=== PATIENT | male | born 1975 | race Caucasian/White ===

== ENCOUNTER 2021-07-26 03:27 | Outpatient (CLI) | payer OTHER, SELFPAY ==
[2021-07-26 10:34] LABS: HCT 45.8 % (40.0-50.0); HGB 15.4 g/dL (13.5-17.5); MCH 31.4 pg (27.0-33.0); MCHC 33.6 % (32.0-36.0); MCV 93.5 fL (80-95); MPV 10.5 fL (8.0-11.0); Platelet Count 220 10^3/uL (130-400); RDW 11.9 % (11.8-14.1)
[2021-07-26 11:42] LABS: ALT 44 U/L (16-63); AST 20 U/L (15-37); Albumin 4.5 g/dL (3.4-5.0); Alkaline Phosphatase 111 U/L (46-116); Anion Gap 7.8 mmol/L (3-11); BUN 8 mg/dL (7-18); Bilirubin, Total 0.6 mg/dL (0.2-1.0); CO2 29.2 mmol/L (21.0-32.0); CREATININE 1.1 mg/dL (0.70-1.30); Calcium 9.7 mg/dL (8.5-10.1); Calculated LDL 108 mg/dL (<100); Chloride 102 mmol/L (98-107); Cholesterol 191 mg/dL (<200); Glucose 100 mg/dL (74-106); HDL Cholesterol 66 mg/dL (40-60); Potassium 4.5 mmol/L (3.5-5.1); Sodium 139 mmol/L (136-145); Total Protein 7.9 g/dL (6.4-8.2); Triglyceride 87 mg/dL (<150)
== END 2021-07-26 03:28 | disposition home or self-care (01) ==
LOC: LBO 03:27
PROVIDERS: PCP Nurse Practitioner; Visit Provider Nurse Practitioner
DX: Z00.00 Encounter for general adult medical examination without abnormal findings (principal); Z13.220 Encounter for screening for lipoid disorders
CPT/HCPCS: 36415; 80053; 80061; 85027

== ENCOUNTER 2024-01-29 09:13 | Day surgery (SDC) | payer OTHER, SELFPAY ==
--- NOTE | 2024-01-28 11:38 | COLE_ITS ---
Date of service: 01/29/24 Time of Service: 10:39 Colonoscopy Report Date of procedure: 01/29/24 Pre-op diagnosis general: crc screening Post-op diagnosis procedure note: other (Diverticula and colon polyps) Surgeon: Desirae Napoles Anesthesia Type: General:No Airway Estimated blood loss (mL): 2 Pathology: other Complications: None Disposition: same day Prep: Miralax/Dulcolax Retraction Time: 14 Procedure Description: After informed consent was obtained the patient was taken to the procedure room and placed in a left decubitous position. Monitors were applied and a time out was done. The patients name, date of , procedure, allergies to medications and metal in their body was reviewed. The patient was then sedated. Once sedated and comfortable a rectal exam was done. External exam was normal. Internal exam revealed a normal sphincter tone and no palpable masses. The prostate without masses. The scope was then introduced and retrofelexed. No internal hemorrhoids were identified. The scope was then advanced to the cecum without difficulty. The TI and appendiceal orifice were identified. The scope was then slowly retracted over 14 minutes back into the rectum. He has few, small diverticula confined to the sigmoid colon. There is no signs of active bleeding or infection. He has a flat 0.5 cm polyp at 20 cm that is removed with a cold biopsy forceps. He has a 0.75 cm pedunculated polyp in the rectum. This is removed with a cold snare. All specimens are retrieved and no bleeding is noted the scope was removed and the patient was woken up and taken back to Same day surgery in stable condition. The patient tolerated the procedure well and there were no immediate complications. Follow up: The patient should follow up in 5-7years, path pending, unless they develop changes in bowel habits or other new gastrointestinal complaints. [place] Bowel Prep [place] Bowel Prep Right Colon: 3 Left Colon: 3 Transverse Colon: 3 Total Score: 9
--- NOTE | 2024-01-28 11:39 | PDOC.DSDIS_ITS ---
Date of service: 01/29/24 Time of Service: 10:48 Discharge Plan Disposition Patient Disposition: Home Condition: Good Discharge Details Reason For Visit: colon cancer screening Attending Provider: Desirae Napoles Primary Care Provider: Cristela Plascencia Home Meds and New Rx's Prescriptions: Continued albuterol sulfate [ProAir HFA] 90 mcg/actuation HFA aerosol inhaler 2 puff Inhalation QID PRN (Reason: bronchospasm) Qty: 8.5 12RF Rx Instructions: 2 puffs QID PRN. valacyclovir [Valtrex] 1 gram tablet 2,000 mg PO BID PRN (Reason: herpes) Qty: 32 12RF Rx Instructions: 2 tabs BID for one day, PRN genital herpes outbreak. Discontinued polyethylene glycol 3350 17 gram/dose powder 238 g PO ONCE Qty: 238 0RF Rx Instructions: take per colonoscopy instructions bisacodyl [Dulcolax (bisacodyl)] 5 mg tablet,delayed release (DR/EC) 5 mg PO ONCE Qty: 4 0RF Rx Instructions: take per colonoscopy instructions Discharge Instructions Additional Instructions: [facility] Colonoscopy Post- Op Instructions Instructions for Everyone who is given Anesthesia: For your safety, please do the following for the next twenty-four (24) hours: *Do Not operate a motor vehicle (car, truck, motorcycle, etc.) *Do Not drink alcoholic beverages or use any recreational drugs for the first 24 hours or while taking pain medications. The medications in your body may have a reaction that can be dangerous. *Do Not make any important decisions or sign any important papers. Findings: -Diverticula-make sure that you are moving your bowels on a regular basis and not straining to go to the bathroom. If you are having problems with constipation or straining then it is Recommended that you start a fiber product such as Metamucil or Citrucel. -Polyps Follow up: My office will send you a letter in 2 to 3 weeks time with the results of the pathology and when we want you to repeat the colonoscopy, most likely in 5 to 7 years time. 1. No lifting over 20 pounds or strenuous activity for the first 24 hours after your procedure. After 24 hours there are no restrictions on your activity but you may feel fatigued for a few days. 2. After you arrive home you may have a light meal and return to your normal diet as you can tolerate it without feeling sick to your stomach. 3. You may have a bloated, gaseous feeling in your belly (abdomen) after a colonoscopy. Passing gas and belching will help. Walking or lying down on your left side with your knees flexed may relieve the discomfort. Call the office at [phone] (Office) or [phone] (Hospital) right away if you notice any of the following: a.Vomiting of blood or ?coffee ground stools?. b.Rectal bleeding 1Tbsp, blood clots or continuous bleeding. c.Severe belly (abdominal) pain. d.A hard distended belly (abdomen) and an inability to pass gas. 4. Please don?t expect to have a normal BM (bowel movement) for 2-3 days after your procedure. 5. If there are questions regarding the findings of your procedure, please c ontact your doctor 6. If you are unable to contact your doctor with a problem, contact the hospital at [phone]. 7. Continue all your regular medications unless directed otherwise. I understand the above instructions and have no questions. Signature of Patient or Adult Escort Name of Responsible Adult Escort Signature of Nurse Date/Time Activity:: see above Diet:: see above Discharge Orders Discharge Orders: Discharge Order (Routine); Ordered 01/29/24 Ordered By: Desirae Napoles DS: Diagnosis Discharge Diagnosis (1) Screening for malignant neoplasm of colon performed: Status: Acute Asessment and Plan: The patient is seen and examined after their colonoscopy.? The patient has been able to pass gas.? They are not having abdominal pain.? They have been able to tolerate liquids and a snack.? They do not have any nausea or vomiting.? They are not having any chest pain or shortness of breath.??? They are not having any rectal bleeding. Their vital signs have been stable-see nursing notes. We discussed findings during their colonoscopy, and any biopsies that were done/polyps that were removed. The patient will be sent a letter with any biopsy results, and when to repeat the colonoscopy.-see discharge instructions. Patient was given explicit instructions to follow-up regarding colonoscopy-refer to discharge instructions.? We reviewed resumption of medications. Patient verbalized understanding and discharged in stable and satisfactory condition- See nursing notes. 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
[2024-01-29 09:18] VITALS: BP 149/86; PULSE 63; RESP 16; TEMP 36.4; O2SAT 99
[2024-01-29] MEDS: Lactated Ringers 1,000 ML 80 ML IV (09:45)
--- NOTE | 2024-01-29 10:02 | W.ANESPRE ---
General Info Date of Service Date Performed: 01/29/24 Height: 5 ft 6 in Weight: 63.8 kg Body Mass Index (BMI): 22.6 Surgical Procedure: Operation Date: 01/29/24 10:05 Proposed Procedure Side Surgeon p Colonoscopy Desirae Napoles DO Actual Procedure Side Surgeon p Colonoscopy Not Applicable Desirae Napoles DO Pre-Op Diagnosis Post-Op Diagnosis colon cancer screening Meds Allergies and Home Medications Allergies Allergy/AdvReac Type Severity Reaction Status Date / Time No Known Allergies Allergy Verified 01/29/24 09:32 Home Medication Medication Instructions Recorded albuterol sulfate 90 mcg/actuation 2 puff inhalation QID PRN 09/30/23 aerosol inhaler (ProAir HFA) bronchospasm #8.5 grams valacyclovir 1 gram tablet 2,000 mg (2 x 1 gram) PO BID PRN 09/30/23 (Valtrex) herpes #32 tab-caps Current Visit Medications: Current Medications Generic Name Dose Route Start Last Admin Trade Name Freq PRN Reason Stop Dose Admin Hyoscyamine Sulfate 0.125 mg 01/29/24 11:37 Hyoscyamine 0.125 Mg Sl/Oral/Chew SL 02/28/24 11:36 DIRECTED PRN Ringer's Solution 1,000 mls @ 80 mls/hr 01/29/24 06:00 01/29/24 09:45 IV 02/27/24 23:59 80 mls/hr INFUSION DEX Administration IV Miscellaneous Supplies 1 each 01/29/24 06:00 Iv Access IV 02/27/24 23:59 DIRECTED DEX Ondansetron HCl 4 mg 01/29/24 11:37 Ondansetron 4 Mg/2 Ml Vial IVP 02/28/24 11:36 Q4H PRN PRN Nausea / Vomiting Sodium Chloride 0 ml 01/29/24 06:00 Normal Saline Flush 10 Ml Syr IV 02/27/24 23:59 PRN PRN Sodium Chloride 0 ml 01/29/24 06:00 Normal Saline 10 Ml Vial IJ 02/27/24 23:59 DIRECTED PRN Sterile Water 0 ml 01/29/24 06:00 Water,Injection,Sterile 10 Ml Vial IJ 02/27/24 23:59 DIRECTED PRN PFSH Active Problems Active Problems: Problem Status Onset Code Screening for malignant neoplasm of colon performed Z12.11 Colon cancer screening Z12.11 Routine medical exam Z00.00 History of herpes genitalis Z86.19 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 J45.909 Encounter for routine history and physical examination Z00.00 Screening for cholesterol level Z13.220 Tobacco Smoking/Tobacco Use Status: Never Passive smoking exposure: No Alcohol Alcohol Intake: current Alcohol intake frequency: a few times a month Alcohol type: beer Substance Use Substance use: Never Substance use type: does not use Vital Signs and Lab Results Vital Signs Most Recent Vital Signs in EMR: Most Recent Vital Signs Temp Pulse Resp BP Pulse Ox 36.4 C L 63 16 149/86 H 99 01/29/24 09:18 01/29/24 09:18 01/29/24 09:18 01/29/24 09:18 01/29/24 09:18 Lab Results Blood Type / Crossmatch: No Data to Display Complete Blood Count: No Data to Display Complete Metabolic Panel: No Data to Display Liver Function Panel: No Data to Display Coagulation Panel: No Data to Display Cardiac Panel: No Data to Display Arterial Blood Gas: No Data to Display Venous Blood Gas: No Data to Display Pancreas Panel: No Data to Display Thyroid Panel: No Data to Display Infectious Disease: No Data to Display Blood Cultures: No Data to Display Toxicology Panel: No Data to Display Anesthesia Assessment and Plan Anesthesia History Personal History: No History of Anesthesia Complications Family History: No Family History of Anesthesia Complications Exercise Tolerance Exercise Tolerance: Metabolic Equivalents>4 Pertinent Negatives Pertinent Negatives: No Symptoms of GERD Cardiac & Pulmonary Exam Cardiac Exam: Normal S1/S2 Heart Sounds Pulmonary Exam: Clear Bilateral Breath Sounds Implantable Cardiac Device Does patient have a Pacemaker or an ICD?: No Airway Exam Known Difficult Airway: No Mallampati Class: 2 Mouth Opening: Normal (> 3cm) Thyromental Distance: Greater than 3 cm Neck Range of Motion: Full ROM Neck Circumference: Normal Teeth Condition: Normal Dentition ASA Classification ASA Score: ASA 2 Emergency Case?: No NPO Status NPO Status: NPO Clears >2 hours, Solids >8 hours Anesthesia Plan Resuscitation Status: Full Code Anesthesia Technique: General Anesthesia Airway Planned: Natural Airway Monitors Used: Standard Monitors
[2024-01-29 10:03] VITALS: BMI 22.6
--- NOTE | 2024-01-29 10:11 | BOWEL_PTH ---
PATIENT: Matteo Muller LOC: [facility] U#:[id number] AGE/SX: 48/M ROOM: RE01/29/[address]: Desirae Napoles : 1975 BED: DIS: 01/29/2024 SPEC #: [id number] RECD: 01/29/24 12:41 STATUS: BHARATI REQ #: [id number] LANIE: 01/29/24 10:[address]: Desirae Napoles DEPT: Surgical Specimen RECD BY: Rebecca Bell ENTERED: 01/29/24 12:42 SP TYPE: Bowel OTHR DR: Cristela Plascencia APRN Tissues: 1 - BIOPSY BOWEL 2 - BIOPSY BOWEL Procedures: GROSS AND MICRO LEVEL 4 Comments: [id number]
--- NOTE | 2024-01-29 10:46 | W.ANESPOSTOP ---
Postoperative Evaluation Date, Time and Location Date Performed: 01/29/24 Time Performed: 10:46 Patient Location: Day Surgery Unit Vital Signs Most Recent Imported Vital Signs: Most Recent Vital Signs Temp Pulse Resp BP Pulse Ox 36.4 C L 63 16 149/86 H 99 01/29/24 09:18 01/29/24 09:18 01/29/24 09:18 01/29/24 09:18 01/29/24 09:18 Assessment Mental Status: Awake (Alert & Oriented to Patient Baseline) Airway and Respiratory Function: Patent airway with normal (patient baseline) respiratory exam Cardiovascular Function: Hemodynamically Stable Hydration Status: Adequately Hydrated Nausea & Vomiting: No Nausea or Vomiting Pain: Pt. Denies Any Pain Peripheral Nerve Block: Patient did not receive a nerve block
[2024-01-29 10:48] VITALS: BP 102/72; PULSE 63; RESP 16; TEMP 36.2; O2SAT 97
[2024-01-29 11:05] VITALS: BP 112/78; PULSE 55; RESP 16; TEMP 36.6; O2SAT 98
== END 2024-01-29 11:30 | disposition home or self-care (01) ==
LOC: SUR 09:14
PROVIDERS: PCP Nurse Practitioner; Visit Provider Surgery
PROC: 0DJD8ZZ Inspection of Lower Intestinal Tract, Via Natural or Artificial Opening Endoscopic (ICD-10-PCS; CPT 45378; principal; 2024-01-29 10:00)
DX: Z12.11 Encounter for screening for malignant neoplasm of colon (principal); K63.5 Polyp of colon; K57.30 Diverticulosis of large intestine without perforation or abscess without bleeding; J45.909 Unspecified asthma, uncomplicated; D12.8 Benign neoplasm of rectum
CPT/HCPCS: 45385; 45380; 88305; J2001; J2704

== ENCOUNTER 2025-09-20 03:18 | Outpatient (CLI) | payer OTHER, SELFPAY ==
[2025-09-20 10:35] LABS: Anion Gap 8.2 mmol/L (3-11); BUN 11 mg/dL (7-18); CO2 29.8 mmol/L (21.0-32.0); Calcium 9.3 mg/dL (8.5-10.1); Chloride 103 mmol/L (98-107); Cholesterol 209 mg/dL (<200); Glucose 97 mg/dL (74-106); HDL Cholesterol 56 mg/dL (>or=40); Potassium 3.8 mmol/L (3.5-5.1); Sodium 141 mmol/L (136-145)
== END 2025-09-20 03:19 | disposition home or self-care (01) ==
LOC: LBO 03:18
DX: Z13.220 Encounter for screening for lipoid disorders (principal); Z00.00 Encounter for general adult medical examination without abnormal findings
CPT/HCPCS: 36415; 80048; 80061